=== PATIENT | female | born 1950 | race American Indian/Alaskan Native ===

== ENCOUNTER 2018-08-04 06:29 | Day surgery (SDC) | payer MEDICARE ==
[2018-08-03 11:45] VITALS: BMI 28.6
[2018-08-04 06:58] VITALS: O2SAT 100
[2018-08-04] MEDS ORDERED: Propofol 10 mg/ml Inj (20 ML) ONE (07:53)
[2018-08-04] MEDS ORDERED: Lidocaine Hydrochloride 5 ML INJ ONE (07:55)
[2018-08-04] MEDS ORDERED: Lactated Ringer's 500 ML IV ONE ×3 (07:59)
[2018-08-04 09:29] VITALS: BP 114/61; PULSE 68; RESP 17; TEMP 97.2
== END 2018-08-04 09:25 | disposition home or self-care (01) ==
LOC: C.ENDO 06:29
PROVIDERS: ATTEND Internal Medicine Gastroenterology
DX: Z12.11 Encounter for screening for malignant neoplasm of colon (principal); D12.3 Benign neoplasm of transverse colon; K64.8 Other hemorrhoids
CPT/HCPCS: 45380; 88305; J2704; J7120